=== PATIENT | male | born 1945 | race Caucasian/White ===

== ENCOUNTER → 2016-11-21 | Day surgery (SDC) | payer MEDICARE, BC ==
[~2016-11-21] MED LIST: AMLODIPINE BESYL5 MG PO; ASPIRIN 32325 MG/TAB PO; CLOPIDOGREL75 MG PO; LEVOCETIRIZINE D5 MG PO; LOVASTATIN40 MG PO; NITROSTAT0.4 MG/TAB SL; NORCO 325 MG-51 TAB PO; PANTOPRAZOLE40 MG PO; PROVENTIL0.09 MG/A1 IH; THEOPHYLLINE300 MG PO
== END ==
LOC: MSO 14:38
DX: Z12.11 Encounter for screening for malignant neoplasm of colon (principal); Z86.010 Personal history of colon polyps; I10 Essential (primary) hypertension; Z87.891 Personal history of nicotine dependence; J44.9 Chronic obstructive pulmonary disease, unspecified; J45.909 Unspecified asthma, uncomplicated
CPT/HCPCS: 00810; J7120

== ENCOUNTER → 2016-12-04 | Outpatient (CLI) | payer MEDICARE, BC | LOC: RAD 14:21 | DX: M54.14 Radiculopathy, thoracic region (principal); M54.5 Low back pain; M40.204 Unspecified kyphosis, thoracic region ==

== ENCOUNTER → 2016-12-27 | Outpatient (CLI) | payer MEDICARE, BC | LOC: LAB 09:30 | DX: R06.00 Dyspnea, unspecified (principal); I25.10 Atherosclerotic heart disease of native coronary artery without angina pectoris; Z12.5 Encounter for screening for malignant neoplasm of prostate; N52.03 Combined arterial insufficiency and corporo-venous occlusive erectile dysfunction; R20.2 Paresthesia of skin ==

== ENCOUNTER → 2017-01-03 | Outpatient (CLI) | payer MEDICARE, BC ==
[2015-12-02 12:05] VITALS: BP 130/79
== END ==
LOC: LAB 11:16
DX: Z12.11 Encounter for screening for malignant neoplasm of colon (principal)

== ENCOUNTER 2018-02-03 10:27 | Emergency (ER) | payer MEDICARE, BC ==
[~2018-02-03] VITALS: Ht 185.4 cm; Wt 81.8 kg
[2018-02-03 11:37] LABS: HEMATOCRIT 46.3 % (42.0-52.0); HEMOGLOBIN 15.5 g/dL (13.5-18.0); MEAN CELL VOLUME 88 fl (78-100); MEAN CORPUSCULAR HEMOGLOBIN 30 pg (27-31); MEAN CORPUSCULAR HGB CONC 34 g/dL (33-37); MEAN PLATELET VOLUME 9.6 fl (7.4-10.4); PLATELET COUNT 232 K/mm3 (130-400); RED BLOOD COUNT 5.25 M/mm3 (4.20-5.60); RED CELL DISTRIBUTION WIDTH 13.1 % (11.5-14.5); WHITE BLOOD COUNT 7.7 K/mm3 (4.8-10.8)
[2018-02-03 11:54] LABS: ALBUMIN 4.2 g/dL (3.5-5.0); BUN/CREATININE RATIO 21.7 (6.0-26.0); CALCIUM 9.8 mg/dL (8.4-10.2); TOTAL BILIRUBIN 0.5 mg/dL (0.2-1.3); TOTAL PROTEIN 8.6 g/dL (6.3-8.2)
[2018-02-03 11:58] LABS: PROTHROMBIN TIME 10.1 SECONDS (9.0-12.0)
[2018-02-03 12:20] LABS: LYMPHOCYTE 12 % (20-51); MONOCYTE 6 % (3-10); NEUTROPHILS 77 % (42-75)
[2018-02-03 12:21] LABS: URINE APPEARANCE CLOUDY; URINE BILIRUBIN NEGATIVE (NEGATIVE); URINE COLOR DK YELLOW; URINE GLUCOSE NEGATIVE (NEGATIVE); URINE KETONE 1+ (NEGATIVE); URINE LEUKOCYTE ESTERASE TRACE (NEGATIVE); URINE NITRATE NEGATIVE (NEGATIVE); URINE PROTEIN(semi-quant) 1+ mg/dL (NEGATIVE); URINE UROBILINOGEN NORMAL (NORMAL)
[2018-02-03 12:26] LABS: URINE BLOOD TRACE (NEGATIVE); URINE MUCUS PRESENT (NOT PRESENT)
[2018-02-03] MEDS ORDERED: CARAFATE1 GM/10 M1 PO (13:07)
[2018-02-03 13:13] VITALS: BP 137/85
== END 2018-02-03 13:24 | disposition home or self-care (01) ==
LOC: ED 10:27
PROVIDERS: Family Medicine
DX: K92.2 Gastrointestinal hemorrhage, unspecified (principal); K21.9 Gastro-esophageal reflux disease without esophagitis; I25.10 Atherosclerotic heart disease of native coronary artery without angina pectoris; Z95.1 Presence of aortocoronary bypass graft; Z87.891 Personal history of nicotine dependence; Z79.02 Long term (current) use of antithrombotics/antiplatelets; Z86.73 Personal history of transient ischemic attack (TIA), and cerebral infarction without residual deficits; Z79.82 Long term (current) use of aspirin; R11.2 Nausea with vomiting, unspecified

== ENCOUNTER → 2018-02-04 | Outpatient (CLI) | payer MEDICARE, BC ==
[2018-02-03 13:13] VITALS: BP 137/85
[~2018-02-04] MED LIST changes: +CARAFATE1 GM/10 M1 PO
[2018-02-04 14:41] LABS: EOS # 0.2 (0.04-0.40); HEMATOCRIT 44.3 % (42.0-52.0); HEMOGLOBIN 14.7 g/dL (13.5-18.0); LYMPH# 1.5 (1.50-4.00); MEAN CELL VOLUME 90 fl (78-100); MEAN CORPUSCULAR HEMOGLOBIN 30 pg (27-31); MEAN CORPUSCULAR HGB CONC 33 g/dL (33-37); MEAN PLATELET VOLUME 9.7 fl (7.4-10.4); MONO # 0.7 (0.20-0.80); NEU # 4.3 (1.40-6.50); PLATELET COUNT 229 K/mm3 (130-400); RED BLOOD COUNT 4.95 M/mm3 (4.20-5.60); RED CELL DISTRIBUTION WIDTH 13.4 % (11.5-14.5); WHITE BLOOD COUNT 6.6 K/mm3 (4.8-10.8)
[2018-02-04 15:34] LABS: BUN/CREATININE RATIO 17.8 (6.0-26.0); CALCIUM 10.1 mg/dL (8.4-10.2); POTASSIUM 4.4 mmol/L (3.6-5.0); TOTAL BILIRUBIN 0.4 mg/dL (0.2-1.3)
== END ==
LOC: LAB 14:09
PROVIDERS: Internal Medicine
DX: K92.2 Gastrointestinal hemorrhage, unspecified (principal); I25.10 Atherosclerotic heart disease of native coronary artery without angina pectoris

== ENCOUNTER → 2018-02-05 | Day surgery (SDC) | payer MEDICARE, BC ==
[2018-02-03 13:13] VITALS: BP 137/85
== END ==
LOC: MSO 12:58
DX: K22.70 Barrett's esophagus without dysplasia (principal); K21.9 Gastro-esophageal reflux disease without esophagitis; K92.1 Melena; I10 Essential (primary) hypertension; Z86.010 Personal history of colon polyps; Z95.1 Presence of aortocoronary bypass graft; Z87.891 Personal history of nicotine dependence; Z86.73 Personal history of transient ischemic attack (TIA), and cerebral infarction without residual deficits; J44.9 Chronic obstructive pulmonary disease, unspecified
CPT/HCPCS: 00731; A4649; J2704; J7120

== ENCOUNTER → 2019-02-13 | Outpatient (CLI) | payer MEDICARE, BC ==
[2019-02-13 10:37] LABS: EOS # 0.1 (0.04-0.40); HEMATOCRIT 41.9 % (42.0-52.0); LYMPH# 0.9 (1.50-4.00); MEAN CELL VOLUME 89 fl (78-100); MEAN CORPUSCULAR HEMOGLOBIN 30 pg (27-31); MEAN CORPUSCULAR HGB CONC 33 g/dL (33-37); MEAN PLATELET VOLUME 9.5 fl (7.4-10.4); MONO # 0.8 (0.20-0.80); NEU # 5.6 (1.40-6.50); PLATELET COUNT 197 K/mm3 (130-400); RED CELL DISTRIBUTION WIDTH 13.1 % (11.5-14.5); WHITE BLOOD COUNT 7.4 K/mm3 (4.8-10.8)
[2019-02-13 10:55] LABS: ALBUMIN 4.2 g/dL (3.5-5.0); CALCIUM 9.6 mg/dL (8.4-10.2); POTASSIUM 3.8 mmol/L (3.6-5.0); TOTAL BILIRUBIN 0.9 mg/dL (0.2-1.3); TOTAL PROTEIN 7.8 g/dL (6.3-8.2)
[2019-02-13 11:43] LABS: ERYTHROCYTE SEDIMENTATION RATE 27 mm/hr (0-20)
[2019-02-13 23:39] LABS: TESTOSTERONE 640 ng/dL (221-716)
== END ==
LOC: LAB 10:04
PROVIDERS: Internal Medicine
DX: Z12.5 Encounter for screening for malignant neoplasm of prostate (principal); Z12.11 Encounter for screening for malignant neoplasm of colon; I25.10 Atherosclerotic heart disease of native coronary artery without angina pectoris; N52.9 Male erectile dysfunction, unspecified; R20.2 Paresthesia of skin

== ENCOUNTER → 2019-02-20 | Outpatient (CLI) | payer MEDICARE, BC | LOC: LAB 10:17 | DX: Z12.11 Encounter for screening for malignant neoplasm of colon (principal) ==

== ENCOUNTER → 2019-09-08 | Outpatient (CLI) | payer MEDICARE, BC ==
[2019-09-08 09:47] LABS: BASO # 0.1 (0.02-0.10); EOS # 0.2 (0.04-0.40); EOS % 3.7 % (0.0-4.0); HEMATOCRIT 44.3 % (42.0-52.0); HEMOGLOBIN 14.9 g/dL (13.5-18.0); MEAN CELL VOLUME 89 fl (78-100); MEAN CORPUSCULAR HEMOGLOBIN 30 pg (27-31); MEAN CORPUSCULAR HGB CONC 34 g/dL (33-37); MEAN PLATELET VOLUME 9.5 fl (7.4-10.4); MONO # 0.5 (0.20-0.80); NEU # 3.3 (1.40-6.50); PLATELET COUNT 228 K/mm3 (130-400); RED BLOOD COUNT 4.99 M/mm3 (4.20-5.60); WHITE BLOOD COUNT 5.1 K/mm3 (4.8-10.8)
[2019-09-08 09:59] LABS: TOTAL PROTEIN 7.7 g/dL (6.2-8.1)
[2019-09-08 10:00] LABS: TOTAL BILIRUBIN 0.5 mg/dL (0.2-1.2)
[2019-09-08 10:05] LABS: MAGNESIUM 2.03 mg/dL (1.60-2.60)
== END ==
LOC: LAB 09:21
PROVIDERS: Internal Medicine
DX: I25.10 Atherosclerotic heart disease of native coronary artery without angina pectoris (principal)

== ENCOUNTER → 2019-09-12 | Outpatient (CLI) | payer MEDICARE, BC | LOC: CARDREHAB 08:46 → CARDLAB 11:22 | DX: I25.10 Atherosclerotic heart disease of native coronary artery without angina pectoris (principal); R10.32 Left lower quadrant pain | CPT/HCPCS: A9500 ==

== ENCOUNTER 2019-11-14 09:35 | Emergency (ER) | payer MEDICARE, BC ==
[2019-11-14] MEDS ORDERED: THEOPHYLLINE A300 M1 PO (09:49)
[2019-11-14 10:58] VITALS: BP 112/69
== END 2019-11-14 10:56 | disposition home or self-care (01) ==
LOC: ED 09:35
DX: S20.212A Contusion of left front wall of thorax, initial encounter (principal); I25.10 Atherosclerotic heart disease of native coronary artery without angina pectoris; I10 Essential (primary) hypertension; Z79.82 Long term (current) use of aspirin; Z79.02 Long term (current) use of antithrombotics/antiplatelets; Z86.73 Personal history of transient ischemic attack (TIA), and cerebral infarction without residual deficits; Z95.5 Presence of coronary angioplasty implant and graft; W11.XXXA Fall on and from ladder, initial encounter; Y93.89 Activity, other specified; Y92.009 Unspecified place in unspecified non-institutional (private) residence as the place of occurrence of the external cause

== ENCOUNTER → 2020-03-30 | Outpatient (CLI) | payer MEDICARE, BC ==
[~2020-03-30] MED LIST changes: +THEOPHYLLINE A300 M1 PO
[2020-03-30 11:04] LABS: EOS # 0.2 (0.04-0.40); HEMATOCRIT 42.4 % (42.0-52.0); HEMOGLOBIN 14.4 g/dL (13.5-18.0); LYMPH# 0.9 (1.50-4.00); MEAN CELL VOLUME 90 fl (78-100); MEAN CORPUSCULAR HEMOGLOBIN 30 pg (27-31); MEAN CORPUSCULAR HGB CONC 34 g/dL (33-37); MEAN PLATELET VOLUME 9.5 fl (7.4-10.4); MONO # 0.5 (0.20-0.80); NEU # 3.4 (1.40-6.50); PLATELET COUNT 222 K/mm3 (130-400); RED BLOOD COUNT 4.74 M/mm3 (4.20-5.60); RED CELL DISTRIBUTION WIDTH 12.9 % (11.5-14.5); WHITE BLOOD COUNT 4.9 K/mm3 (4.8-10.8)
[2020-03-30 11:14] LABS: ALBUMIN 3.8 g/dL (3.4-4.8); POTASSIUM 4.1 mmol/L (3.5-5.1)
[2020-03-30 11:15] LABS: CALCIUM 9.7 mg/dL (8.3-10.5)
[2020-03-30 11:16] LABS: TOTAL PROTEIN 7.2 g/dL (6.2-8.1)
[2020-03-30 11:18] LABS: TOTAL BILIRUBIN 0.3 mg/dL (0.2-1.2)
[2020-03-30 11:23] LABS: MAGNESIUM 2.06 mg/dL (1.60-2.60)
[2020-03-30 12:20] LABS: ERYTHROCYTE SEDIMENTATION RATE 5 mm/hr (0-20)
[2020-03-30 23:27] LABS: TESTOSTERONE <13 ng/dL (221-716)
== END ==
LOC: LAB 10:32
PROVIDERS: Internal Medicine
DX: Z12.5 Encounter for screening for malignant neoplasm of prostate (principal); Z12.11 Encounter for screening for malignant neoplasm of colon; I25.10 Atherosclerotic heart disease of native coronary artery without angina pectoris; N52.03 Combined arterial insufficiency and corporo-venous occlusive erectile dysfunction; R06.00 Dyspnea, unspecified; R20.2 Paresthesia of skin

== ENCOUNTER → 2021-03-31 | Outpatient (CLI) | payer MEDICARE, BC ==
[2021-03-31 10:21] LABS: BASO # 0.06 (0.02-0.10); EOS # 0.21 (0.04-0.40); EOS % 4.1 % (0.0-4.0); HEMATOCRIT 41.7 % (42.0-52.0); HEMOGLOBIN 14.3 g/dL (13.5-18.0); LYMPH# 0.99 (1.50-4.00); MEAN CELL VOLUME 88 fl (78-100); MEAN CORPUSCULAR HEMOGLOBIN 30 pg (27-31); MEAN CORPUSCULAR HGB CONC 34 g/dL (33-37); MEAN PLATELET VOLUME 9.2 fl (7.4-10.4); MONO # 0.48 (0.20-0.80); NEU # 3.37 (1.40-6.50); PLATELET COUNT 205 K/mm3 (130-400); RED BLOOD COUNT 4.73 M/mm3 (4.20-5.60); RED CELL DISTRIBUTION WIDTH 11.9 % (11.5-14.5); WHITE BLOOD COUNT 5.1 K/mm3 (4.8-10.8)
[2021-03-31 10:46] LABS: POTASSIUM 4.3 mmol/L (3.5-5.1)
[2021-03-31 10:47] LABS: ALBUMIN 3.8 g/dL (3.4-4.8)
[2021-03-31 10:48] LABS: CALCIUM 9.5 mg/dL (8.3-10.5)
[2021-03-31 10:49] LABS: TOTAL PROTEIN 7.3 g/dL (6.2-8.1)
[2021-03-31 10:51] LABS: TOTAL BILIRUBIN 0.5 mg/dL (0.2-1.2)
[2021-03-31 11:35] LABS: ERYTHROCYTE SEDIMENTATION RATE 22 mm/hr (0-20)
[2021-03-31 23:59] LABS: FOLLICLE STIMULATING HORMONE 27.9 mIU/mL (1.0-12.0); LUTENIZING HORMONE 9.6 mIU/mL (0.6-12.1); PROLACTIN AMS 10.1 ng/mL (3.5-19.4)
== END ==
LOC: LAB 09:53
PROVIDERS: Internal Medicine
DX: Z12.5 Encounter for screening for malignant neoplasm of prostate (principal); E78.2 Mixed hyperlipidemia; I10 Essential (primary) hypertension; K90.9 Intestinal malabsorption, unspecified

== ENCOUNTER → 2021-04-07 | Outpatient (CLI) | payer MEDICARE, BC | LOC: LAB 08:45 | DX: Z12.11 Encounter for screening for malignant neoplasm of colon (principal) ==

== ENCOUNTER → 2021-11-11 | Outpatient (CLI) | payer MEDICARE, BC | LOC: LAB 11:34 | DX: Z01.812 Encounter for preprocedural laboratory examination (principal); Z20.822 Contact with and (suspected) exposure to COVID-19 ==

== ENCOUNTER → 2021-12-02 | Outpatient (CLI) | payer MEDICARE, BC ==
[2021-12-02 10:27] LABS: BASO # 0.01 K/mm3 (0.02-0.10); EOS % 4.2 % (0.0-4.0); HEMATOCRIT 42.8 % (42.0-52.0); HEMOGLOBIN 14.3 g/dL (13.5-18.0); MEAN CELL VOLUME 89 fl (78-100); MEAN CORPUSCULAR HEMOGLOBIN 30 pg (27-31); MEAN CORPUSCULAR HGB CONC 33 g/dL (33-37); MEAN PLATELET VOLUME 9.4 fl (7.4-10.4); MONO # 0.63 K/mm3 (0.20-0.80); NEU # 3.15 K/mm3 (1.40-6.50); PLATELET COUNT 218 K/mm3 (130-400); RED BLOOD COUNT 4.82 M/mm3 (4.20-5.60); RED CELL DISTRIBUTION WIDTH 12.1 % (11.5-14.5); WHITE BLOOD COUNT 4.8 K/mm3 (4.8-10.8)
[2021-12-02 10:40] LABS: ALBUMIN 3.8 g/dL (3.4-4.8); POTASSIUM 4.3 mmol/L (3.5-5.1)
[2021-12-02 10:41] LABS: CALCIUM 10.1 mg/dL (8.3-10.5)
[2021-12-02 10:42] LABS: TOTAL PROTEIN 7.8 g/dL (6.2-8.1)
[2021-12-02 10:44] LABS: TOTAL BILIRUBIN 0.5 mg/dL (0.2-1.2)
[2021-12-02 11:03] LABS: D-DIMER 1.29 mg/L FEU (0.15-0.50)
[2021-12-02 11:29] LABS: ERYTHROCYTE SEDIMENTATION RATE 36 mm/hr (0-20)
== END ==
LOC: RAD 09:57
PROVIDERS: Internal Medicine
DX: R06.00 Dyspnea, unspecified (principal); R79.1 Abnormal coagulation profile
CPT/HCPCS: Q9967

== ENCOUNTER → 2022-04-10 | Outpatient (CLI) | payer MEDICARE, BC ==
[2022-04-10 11:43] LABS: BASO # 0.03 K/mm3 (0.02-0.10); EOS # 0.09 K/mm3 (0.04-0.40); HEMATOCRIT 40.5 % (42.0-52.0); HEMOGLOBIN 13.7 g/dL (13.5-18.0); LYMPH# 0.92 K/mm3 (1.50-4.00); MEAN CELL VOLUME 89 fl (78-100); MEAN CORPUSCULAR HEMOGLOBIN 30 pg (27-31); MEAN CORPUSCULAR HGB CONC 34 g/dL (33-37); MEAN PLATELET VOLUME 9.6 fl (7.4-10.4); MONO # 0.44 K/mm3 (0.20-0.80); PLATELET COUNT 179 K/mm3 (130-400); RED BLOOD COUNT 4.53 M/mm3 (4.20-5.60); RED CELL DISTRIBUTION WIDTH 12.9 % (11.5-14.5); WHITE BLOOD COUNT 4.6 K/mm3 (4.8-10.8)
[2022-04-10 11:49] LABS: ALBUMIN 3.9 g/dL (3.4-4.8); POTASSIUM 4.1 mmol/L (3.5-5.1)
[2022-04-10 11:50] LABS: CALCIUM 9.9 mg/dL (8.3-10.5)
[2022-04-10 11:51] LABS: TOTAL PROTEIN 7.2 g/dL (6.2-8.1)
[2022-04-10 11:53] LABS: TOTAL BILIRUBIN 0.6 mg/dL (0.2-1.2)
[2022-04-10 11:58] LABS: MAGNESIUM 2.08 mg/dL (1.60-2.60)
[2022-04-10 13:06] LABS: ERYTHROCYTE SEDIMENTATION RATE 23 mm/hr (0-20)
== END ==
LOC: LAB 10:49
PROVIDERS: Internal Medicine
DX: Z12.11 Encounter for screening for malignant neoplasm of colon (principal); Z12.5 Encounter for screening for malignant neoplasm of prostate; I25.10 Atherosclerotic heart disease of native coronary artery without angina pectoris; E78.2 Mixed hyperlipidemia; I10 Essential (primary) hypertension; K90.9 Intestinal malabsorption, unspecified

== ENCOUNTER → 2022-04-18 | Outpatient (CLI) | payer MEDICARE, BC | LOC: LAB 09:24 | DX: Z12.5 Encounter for screening for malignant neoplasm of prostate (principal); Z12.11 Encounter for screening for malignant neoplasm of colon; I25.10 Atherosclerotic heart disease of native coronary artery without angina pectoris; I10 Essential (primary) hypertension; E78.2 Mixed hyperlipidemia; K90.9 Intestinal malabsorption, unspecified ==

== ENCOUNTER → 2022-12-14 | Outpatient (CLI) | payer MEDICARE, BC ==
[2022-12-14 10:27] LABS: BASO # 0.01 K/mm3 (0.02-0.10); EOS # 0.16 K/mm3 (0.04-0.40); EOS % 3.7 % (0.0-4.0); HEMATOCRIT 42.6 % (42.0-52.0); HEMOGLOBIN 14.2 g/dL (13.5-18.0); MEAN CELL VOLUME 90 fl (78-100); MEAN CORPUSCULAR HEMOGLOBIN 30 pg (27-31); MEAN CORPUSCULAR HGB CONC 33 g/dL (33-37); MEAN PLATELET VOLUME 9.2 fl (7.4-10.4); NEU # 2.82 K/mm3 (1.40-6.50); PLATELET COUNT 203 K/mm3 (130-400); RED BLOOD COUNT 4.74 M/mm3 (4.20-5.60); RED CELL DISTRIBUTION WIDTH 12.5 % (11.5-14.5); WHITE BLOOD COUNT 4.3 K/mm3 (4.8-10.8)
[2022-12-14 10:35] LABS: POTASSIUM 4.5 mmol/L (3.5-5.1)
[2022-12-14 10:36] LABS: CALCIUM 10.3 mg/dL (8.3-10.5)
[2022-12-14 10:37] LABS: TOTAL PROTEIN 7.5 g/dL (6.2-8.1)
[2022-12-14 10:39] LABS: TOTAL BILIRUBIN 0.4 mg/dL (0.2-1.2)
[2022-12-14 10:44] LABS: MAGNESIUM 2.13 mg/dL (1.60-2.60)
[2022-12-14 11:11] LABS: PROTHROMBIN TIME 10.4 SECONDS (9.0-12.0)
[2022-12-14 13:40] LABS: URINE APPEARANCE CLEAR; URINE BILIRUBIN NEGATIVE (NEGATIVE); URINE BLOOD NEGATIVE (NEGATIVE); URINE COLOR YELLOW; URINE GLUCOSE NEGATIVE (NEGATIVE); URINE KETONE NEGATIVE (NEGATIVE); URINE LEUKOCYTE ESTERASE NEGATIVE (NEGATIVE); URINE NITRATE NEGATIVE (NEGATIVE); URINE PROTEIN(semi-quant) NEGATIVE (NEGATIVE); URINE UROBILINOGEN NORMAL (NORMAL); URINE WBC 0-1 /hpf (0-3)
[2022-12-14 13:41] LABS: URINE MUCUS PRESENT (NOT PRESENT)
== END ==
LOC: LAB 10:13 → RAD 10:13
PROVIDERS: Internal Medicine
DX: Z01.810 Encounter for preprocedural cardiovascular examination (principal); K90.9 Intestinal malabsorption, unspecified; I25.10 Atherosclerotic heart disease of native coronary artery without angina pectoris

== ENCOUNTER → 2022-12-27 | Day surgery (SDC) | payer MEDICARE, BC | LOC: MSO 01:40 | DX: H25.11 Age-related nuclear cataract, right eye (principal) | CPT/HCPCS: 00142; J0171; J2250; V2632 ==

== ENCOUNTER → 2024-05-22 | Outpatient (CLI) | payer MEDICARE, BC ==
[2024-05-22 15:37] LABS: ALBUMIN 3.9 g/dL (3.4-4.8)
[2024-05-22 15:38] LABS: CALCIUM 10.2 mg/dL (8.3-10.5)
[2024-05-22 15:39] LABS: TOTAL PROTEIN 7.2 g/dL (6.2-8.1)
[2024-05-22 15:41] LABS: BASO # 0.01 K/mm3 (0.02-0.10); EOS # 0.15 K/mm3 (0.04-0.40); EOS % 3.2 % (0.0-4.0); HEMATOCRIT 40.1 % (42.0-52.0); HEMOGLOBIN 13.2 g/dL (13.5-18.0); LYMPH# 1.23 K/mm3 (1.50-4.00); MEAN CELL VOLUME 91 fl (78-100); MEAN CORPUSCULAR HEMOGLOBIN 30 pg (27-31); MEAN CORPUSCULAR HGB CONC 33 g/dL (33-37); MEAN PLATELET VOLUME 9.5 fl (7.4-10.4); MONO # 0.47 K/mm3 (0.20-0.80); NEU # 2.74 K/mm3 (1.40-6.50); PLATELET COUNT 168 K/mm3 (130-400); RED BLOOD COUNT 4.41 M/mm3 (4.20-5.60); RED CELL DISTRIBUTION WIDTH 12.7 % (11.5-14.5); TOTAL BILIRUBIN 0.4 mg/dL (0.2-1.2); WHITE BLOOD COUNT 4.6 K/mm3 (4.8-10.8)
[2024-05-22 15:46] LABS: MAGNESIUM 2.12 mg/dL (1.60-2.60)
[2024-05-22 18:32] LABS: PH-URINE 5.5 (5.0 - 8.0); URINE APPEARANCE SLIGHTLY CLOUDY (CLEAR); URINE BILIRUBIN 1+ (NEGATIVE); URINE COLOR DARK YELLOW (YELLOW); URINE GLUCOSE NEGATIVE (NEGATIVE); URINE KETONE TR (NEGATIVE); URINE PROTEIN(semi-quant) NEGATIVE (NEGATIVE)
[2024-05-22 18:33] LABS: URINE BLOOD NEGATIVE (NEGATIVE); URINE LEUKOCYTE ESTERASE NEGATIVE (NEGATIVE); URINE MUCUS PRESENT (NOT PRESENT); URINE NITRATE NEGATIVE (NEGATIVE); URINE WBC 0-1 /hpf (0-3)
[2024-05-22 23:10] LABS: TESTOSTERONE 612 ng/dL (221-716)
== END ==
LOC: LAB 15:05
PROVIDERS: Internal Medicine
DX: Z12.5 Encounter for screening for malignant neoplasm of prostate (principal); Z12.11 Encounter for screening for malignant neoplasm of colon; I10 Essential (primary) hypertension; I25.10 Atherosclerotic heart disease of native coronary artery without angina pectoris; K90.9 Intestinal malabsorption, unspecified; N20.0 Calculus of kidney; R73.9 Hyperglycemia, unspecified; F52.21 Male erectile disorder

== ENCOUNTER → 2024-05-26 | Outpatient (CLI) | payer MEDICARE, BC | LOC: LAB 12:48 | DX: Z12.5 Encounter for screening for malignant neoplasm of prostate (principal); Z12.11 Encounter for screening for malignant neoplasm of colon; I10 Essential (primary) hypertension; I25.10 Atherosclerotic heart disease of native coronary artery without angina pectoris; K90.9 Intestinal malabsorption, unspecified; N20.0 Calculus of kidney; F52.21 Male erectile disorder; R73.9 Hyperglycemia, unspecified ==

== ENCOUNTER 2024-06-12 08:55 | Emergency (ER) | payer MEDICARE, BC ==
[~2024-06-12] VITALS: Ht 182.9 cm; Wt 77.3 kg
[2024-06-12] MEDS ORDERED: ASPIRIN 81M81 MG/TA2 PO (09:10)
[2024-06-12 09:35] LABS: BASO # 0.01 K/mm3 (0.02-0.10); EOS # 0.18 K/mm3 (0.04-0.40); HEMATOCRIT 40.4 % (42.0-52.0); HEMOGLOBIN 13.6 g/dL (13.5-18.0); LYMPH# 1.02 K/mm3 (1.50-4.00); MEAN CELL VOLUME 90 fl (78-100); MEAN CORPUSCULAR HEMOGLOBIN 30 pg (27-31); MEAN CORPUSCULAR HGB CONC 34 g/dL (33-37); MEAN PLATELET VOLUME 9.2 fl (7.4-10.4); MONO # 0.42 K/mm3 (0.20-0.80); NEU # 2.83 K/mm3 (1.40-6.50); PLATELET COUNT 182 K/mm3 (130-400); RED BLOOD COUNT 4.49 M/mm3 (4.20-5.60); RED CELL DISTRIBUTION WIDTH 12.3 % (11.5-14.5); WHITE BLOOD COUNT 4.5 K/mm3 (4.8-10.8)
[2024-06-12 09:44] LABS: ALBUMIN 3.7 g/dL (3.4-4.8); SODIUM 139 mmol/L (136-145)
[2024-06-12] MEDS ORDERED: Meclizine 12.5 MG TAB PO ONE (09:45)
[2024-06-12] MEDS ORDERED: NS 1,000 ML IV SCH (09:45)
[2024-06-12] MEDS ORDERED: Ondansetron 4 MG/2 ML VIAL IV ONE (09:45)
[2024-06-12 09:46] LABS: GLUCOSE 101 mg/dL (75-110)
[2024-06-12 09:47] LABS: TOTAL PROTEIN 7.2 g/dL (6.2-8.1)
[2024-06-12 09:48] LABS: CARBON DIOXIDE 21 mmol/L (23-31); TOTAL BILIRUBIN 0.4 mg/dL (0.2-1.2)
[2024-06-12 09:52] LABS: AST-SGOT 15 U/L (5-34)
[2024-06-12 09:53] LABS: ALT/SGPT 9 U/L (0-55)
[2024-06-12 10:10] LABS: TROPONIN-I < 0.030 ng/mL (0.00-0.033)
[2024-06-12 10:28] LABS: PH-URINE 5.5 (5.0 - 8.0); URINE APPEARANCE CLEAR (CLEAR); URINE BILIRUBIN NEGATIVE (NEGATIVE); URINE BLOOD NEGATIVE (NEGATIVE); URINE COLOR YELLOW (YELLOW); URINE GLUCOSE NEGATIVE (NEGATIVE); URINE KETONE NEGATIVE (NEGATIVE); URINE LEUKOCYTE ESTERASE NEGATIVE (NEGATIVE); URINE MUCUS PRESENT (NOT PRESENT); URINE NITRATE NEGATIVE (NEGATIVE); URINE PROTEIN(semi-quant) NEGATIVE (NEGATIVE)
[2024-06-12] MEDS ORDERED: MECLIZINE PO (11:09)
[2024-06-12] MEDS ORDERED: PHENERGAN 25 TA25 MG PO (11:09)
[2024-06-12 11:25] VITALS: BP 144/68
== END 2024-06-12 11:20 | disposition home or self-care (01) ==
LOC: ED 08:55
PROVIDERS: Nurse Practitioner
DX: H81.10 Benign paroxysmal vertigo, unspecified ear (principal); Z79.02 Long term (current) use of antithrombotics/antiplatelets
CPT/HCPCS: J2405; J7030